=== PATIENT | female | born 2000 | race Caucasian/White ===

== ENCOUNTER → 2020-08-27 | Outpatient (CLI) | payer OTHER | LOC: RAD 16:25 | DX: M54.5 Low back pain (principal); M54.6 Pain in thoracic spine | CPT/HCPCS: 72070; 72100 ==

== ENCOUNTER → 2020-09-24 | Outpatient (CLI) | payer OTHER | LOC: RAD 16:52 | DX: M54.6 Pain in thoracic spine (principal); M41.84 Other forms of scoliosis, thoracic region ==

== ENCOUNTER → 2021-07-10 | Emergency (ER) | payer OTHER | END | disposition left against medical advice (07) | LOC: EDSEX 18:07 → ER1 18:07 | DX: J02.9 Acute pharyngitis, unspecified (principal); R05.9 Cough, unspecified; F17.290 Nicotine dependence, other tobacco product, uncomplicated | CPT/HCPCS: 71045; 93005; 99283 ==